=== PATIENT | male | born 1990 ===

== ENCOUNTER 2021-09-26 11:53 | Emergency (ER) | payer OTHER ==
--- NOTE | 2021-09-26 13:16 | Emergency Department Report ---
ED General Adult HPI - General Chief complaint: Extremity Injury, Lower Stated complaint: LOWER EXTREMITY INJURY Time Seen by Provider: 09/26/21 13:05 Source: EMS Mode of arrival: Stretcher Limitations: Language Barrier - History of Present Illness Initial comments: Patient presents to the emergency department the chief complaint of left lower extremity pain. Patient states he was at work when he dropped a bucket onto his leg and foot. 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 Patient denies injury to any other part of his body. Patient describes the pain as sharp in nature without radiation. -: Sudden Location: lower extremity Radiation: non-radiation Severity scale (0 -10): 8 Quality: sharp Consistency: constant Improves with: rest Worsens with: movement Associated Symptoms: denies other symptoms Treatments Prior to Arrival: none - Related Data Previous Rx's Medication Instructions Recorded Last Taken Type traMADoL [Ultram] 50 mg PO Q6HR PRN #24 tablet 09/26/21 Unknown Rx Allergies Allergy/AdvReac Type Severity Reaction Status Date / Time No Known Allergies Allergy Unverified 09/26/21 13:23 ED Review of Systems ROS: Stated complaint: LOWER EXTREMITY INJURY Other details as noted in HPI Constitutional: denies: chills, fever Eyes: denies: eye pain, eye discharge, vision change ENT: denies: ear pain, throat pain Respiratory: denies: cough, shortness of breath, wheezing Cardiovascular: denies: chest pain, palpitations Endocrine: no symptoms reported Gastrointestinal: denies: abdominal pain, nausea, diarrhea Genitourinary: denies: urgency, dysuria Musculoskeletal: other (Left lower leg pain). denies: back pain, joint swelling, arthralgia Skin: denies: rash, lesions Neurological: denies: headache, weakness, paresthesias Psychiatric: denies: anxiety, depression Hematological/Lymphatic: denies: easy bleeding, easy bruising ED Past Medical Hx - Medications Home Medications: Home Medications Medication Instructions Recorded Confirmed Last Taken Type traMADoL [Ultram] 50 mg PO Q6HR PRN #24 tablet 09/26/21 Unknown Rx ED Physical Exam - General Limitations: Language Barrier General appearance: alert, in no apparent distress - Head Head exam: Present: atraumatic, normocephalic - Eye Eye exam: Present: PERRL, EOMI - ENT ENT exam: Present: mucous membranes dry - Respiratory Respiratory exam: Present: normal lung sounds bilaterally, respiratory distress - Cardiovascular Cardiovascular Exam: Present: regular rate, normal rhythm - GI/Abdominal GI/Abdominal exam: Present: soft. Absent: distended, tenderness - Extremities Exam Extremities exam: Present: other (Tenderness to palpation over the lateral aspect of the fibula left side as well as tenderness to palpation of the fourth and fifth tarsals) - Back Exam Back exam: Present: normal inspection - Neurological Exam Neurological exam: Present: alert, oriented X3 - Psychiatric Psychiatric exam: Present: normal affect, normal mood - Skin Skin exam: Present: warm, dry, intact, normal color. Absent: rash ED Course Vital Signs 09/26/21 09/26/21 09/26/21 11:58 13:23 13:24 Temperature 97.7 F 97.7 F Pulse Rate 65 73 73 Respiratory 15 12 12 Rate Blood Pressure 121/76 Blood Pressure 137/99 121/73 [Right] O2 Sat by Pulse 98 100 100 Oximetry ED Medical Decision Making - Radiology Data Radiology results: report reviewed - Medical Decision Making results discussed with patient Crutches provided an Owen wrap applied Critical care attestation.: If time is entered above; I have spent that time in minutes in the direct care of this critically ill patient, excluding procedure time. ED Disposition Clinical Impression: Injury of ankle, left, Injury of lower extremity Disposition: 01 HOME / SELF CARE / HOMELESS Is pt being admited?: No Does the pt Need Aspirin: No Condition: Fair Instructions: Ankle Sprain Additional Instructions: return if worse Referrals: PRIMARY CARE, [Primary Care Provider] - 3-5 Days Time of Disposition: 15:56
[2021-09-26 13:51] VITALS: BP 121/76
[2021-09-26] MEDS ORDERED: HYDROcodone/ACETAMINOPHEN 10-325MG TAB PO ONE (14:00)
[2021-09-26] MEDS ORDERED: ONDANSETRON 4 MG ODT TAB PO ONE (14:00)
--- NOTE | 2021-09-26 14:01 | XRay Report ---
XR tibia fibula 2V LT INDICATION / CLINICAL INFORMATION: pain s/p injury. COMPARISON: None available. FINDINGS: No acute fracture. Normal alignment. Joint spaces are preserved. No destructive osseous lesion or s uspicious periosteal reaction. Impression: 1.No acute fracture. Signer Name: Mehran Sepulveda MD Signed: 09/26/2021 1:57 PM Workstation Name: [id number]
--- NOTE | 2021-09-26 14:01 | XRay Report ---
Left foot 2 views INDICATION: Injury FINDINGS: MTP joints and IP joints appear normal. Midfoot alignment appears normal. No acute fracture or dislocation is seen. Signer Name: Tj Ortiz MD Signed: 09/26/2021 1:56 PM Workstation Name: [id number]
== END 2021-09-26 14:00 | disposition home or self-care (01) ==
LOC: ED 11:53
DX: S99.912A Unspecified injury of left ankle, initial encounter (principal); Z88.6 Allergy status to analgesic agent; X58.XXXA Exposure to other specified factors, initial encounter; Y93.89 Activity, other specified; Y92.89 Other specified places as the place of occurrence of the external cause; Y99.8 Other external cause status
CPT/HCPCS: 99283; 99284; J3490; Q0162